=== PATIENT | male | born 2000 | race Two or more races ===

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

== ENCOUNTER 2022-02-16 13:22 | Outpatient (CLI) | payer BC | END 2022-02-16 23:59 | disposition home or self-care (01) | LOC: MRI 13:22 | PROVIDERS: ATTEND Family Medicine | DX: M51.27 Other intervertebral disc displacement, lumbosacral region (principal); M48.8X7 Other specified spondylopathies, lumbosacral region; R22.2 Localized swelling, mass and lump, trunk; M54.9 Dorsalgia, unspecified | CPT/HCPCS: 71550-TC; 72146-TC; 72148-TC ==